=== PATIENT | male | born 1980 | race Hispanic/Latino ===

== ENCOUNTER 2025-05-24 02:39 | Emergency (ER) | payer BC ==
[~2025-05-24] VITALS: Ht 172.7 cm; Wt 66.7 kg
--- NOTE | 2025-05-24 02:45 | ERN ---
ED Note History of Present Illness Stated Complaint: R SIDED LOWER BACK PAIN/NUMBNESS patient comes because he has some right-sided lower back pain. He states that he has back cancer kidney cancers spinal cancer he has that is inoperable patient had attempted to feign or fake a stroke and vagus seizure during his stay here Chief Complaint: Back Pain or Injury Time Seen by MD: 02:42 Allergies: Coded Allergies: No Known Drug Allergies (Unverified Allergy, Unknown, 05/24/25) Review of System Dictation Constitutional: Negative for fever,chills, and weight loss Eyes: Negative for injury, pain,redness, and discharge ENT: Negative for injury,pain or swelling Cardiovascular: Negative for chest pain, palpitations, and edema Respiratory: Negative for shortness of breath, cough, and wheezing, Abdomen/GI: Negative for abdominal pain, nausea, vomiting, diarrhea, and cons tipation Back: Negative for injury and pain : Negative for injury, bleeding and discharge MS/Extremity: Negative for injury and deformity Skin: Negative for rash, and discoloration Neuro: Negative for headache, weakness, numbness, tingling, and seizure Psych: Negative for suicide ideation, homicidal ideation, and hallucinations Initial Vital Sign VS Vital Signs Date Time Temp Pulse Resp B/P (MAP) Pulse Ox O2 Delivery O2 Flow Rate FiO2 05/24/25 02:59 97.9 94 16 124/81 98 Room Air 0 05/24/25 03:15 21 Physical Exam Dictation General: awake, alert, NAD Head/Face: Normocephalic, atraumatic Eyes: PERRL, EOMI, vision at baseline ENT: oral cavity clear, TMs clear, no signs of infection Neck: Trachea midline, supple, no nuchal rigidity Cardiovascular: RRR, normal S1/S2, No MRGs, no JVD Respiratory: CTAB, no respiratory distress, No rales or wheezes Abdomen: Soft, non-tender, non-distended, normal bowel sounds, no guarding or rebound. Skin: Warm, dry, normal turgor, no rash MS/Extremity: Pulses equal, no cyanosis, neurovascular intact, FROM Neuro: COAx4, GCS 15, strength 5/5, CN 2-12 intact, normal cerebellar exam, normal gait, Psych: Normal behavior, mood, and affect normal Results (Laboratory/Radiology) Laboratory/Radiology Laboratory Tests Test 05/24/25 03:22 White Blood Count 5.8 K/uL (4.8-10.8) Red Blood Count 4.39 MIL/uL (4.50-6.20) L Hemoglobin 13.5 g/dL (14.0-18.0) L Hematocrit 37.7 % (42-54) L Mean Corpuscular Volume 85.9 fL (79-99) Mean Corpuscular Hemoglobin 30.8 pg (27.0-33.0) Mean Corpuscular Hemoglobin Concent 35.8 g/dL (32.0-36.0) Red Cell Distribution Width 14.3 % (11.0-15.5) Platelet Count 220 K/uL (130-400) Mean Platelet Volume 10.4 fL (7.5-10.5) Immature Granulocyte % (Auto) 0.9 % (0-1) Neutrophils (%) (Auto) 42.4 % (40.0-77.0) Lymphocytes (%) (Auto) 38.4 % (21.0-51.0) Monocytes (%) (Auto) 11.1 % (3.0-13.0) Eosinophils (%) (Auto) 6.0 % (0.0-8.0) Basophils (%) (Auto) 1.2 % (0.0-5.0) Neutrophils # (Auto) 2.5 K/uL (1.8-7.7) Lymphocytes # (Auto) 2.2 K/uL (1.0-4.8) Monocytes # (Auto) 0.7 K/uL (0.1-1.0) Eosinophils # (Auto) 0.35 K/uL (0.00-0.70) Basophils # (Auto) 0.07 K/uL (0.00-0.20) Absolute Immature Granulocyte (auto 0.05 K/uL (0-1) Nucleated Red Blood Cells 0.0 % (0.0-0.19) Sodium Level 143 mmol/L (136-145) Potassium Level 3.7 mmol/L (3.5-5.1) Chloride Level 110 mmol/L (101-111) Carbon Dioxide Level 21 mmol/L (21-32) Blood Urea Nitrogen 9 mg/dL (7-18) Creatinine 0.7 mg/dL (0.5-1.3) Glomerular Filtration Rate Calc 116 mL/min (>90) Random Glucose 108 mg/dL (70-105) H Total Calcium 8.2 mg/dL (8.5-10.1) L Troponin I High Sensitivity 8 ng/L (4-75) Lipase 26 U/L (16-77) ED Course ED Course Orders Procedure Category Date Status Time Cbc With Differential LAB 05/24/25 Complete 02:43 Troponin I High LAB 05/24/25 Complete Sensitivity 02:43 12 Lead Ekg Tracing- EKG 05/24/25 Logged Technical 02:43 Lactated Ringers PHA 05/24/25 Complete 1000ml (Lactated 03:00 Morphine 4mg Syg PHA 05/24/25 Complete (Morphine 4mg Syg) 03:00 Ondansetron 4mg Inj PHA 05/24/25 Complete (Zofran 4mg Inj) 03:00 Ct Abdomen/Pelvis W/O CT 05/24/25 Resulted Contrast 02:43 Chest 1vw RAD 05/24/25 Resulted 02:43 Lipase LAB 05/24/25 Complete 02:43 Basic Metabolic Panel LAB 05/24/25 Complete 02:43 Haloperidol Inj PHA 05/24/25 In Process (Haldol Inj) 03:00 Current Medications Medications (Trade) Dose Ordered Sig/Toby Route PRN Reason Start Time Stop Time Status Last Admin Dose Admin Haloperidol Lactate (Haldol Inj) 10 mg ONCE PRN IM ANXIETY/AGITATION 05/24/25 03:00 06/23/25 02:59 05/24/25 03:50 Lactated Ringer's 1,000 ml @ 0 mls/hr ONCE ONCE IV 05/24/25 03:00 05/24/25 03:07 DC 05/24/25 03:55 Morphine Sulfate (morPHINE 4MG SYG) 4 mg ONCE ONCE IVP 05/24/25 03:00 05/24/25 03:07 DC 05/24/25 03:53 Ondansetron HCl (zoFRAN 4MG INJ) 4 mg ONCE ONCE IVP 05/24/25 03:00 05/24/25 03:07 DC 05/24/25 03:51 Vital Signs Date Time Temp Pulse Resp B/P (MAP) Pulse Ox O2 Delivery O2 Flow Rate FiO2 05/24/25 03:15 98.6 85 16 120/75 99 Room Air* 0 21 05/24/25 02:59 97.9 94 16 124/81 98 Room Air 0 Medical Decision Making MDM Patient attempted to have fixed seizure and face stroke during his stay initially [facility]. This was aborted with sternal rub. He also said that has entire right side was paralyzed and could not move. But with the nail pressure on both feet and arms. He does have full range of motion strength sensation. He was talking and during this entire time Exhibiting drug-seeking behavior and malingering He does have a mass lesion. He has fallen up with Dr. Rukhsana Peralta has not appointment with Oncology he is coming up His workup does not show any pyelonephritis acute intra-abdominal pathology. Or ACS he does have full range of motion strength sensation of all his limbs I told the patient family he needs to see a chronic pain doctor for to get chronic pain medications he is stable for outpatient management MDM: Differential diagnosis: Rationale: Tests considered and ordered secondary to shared decision making include: Previous outside records reviewed: Old ER visits. Risk of complication and/or morbidity or mortality of patient management: None Medications-Per medication reconciliation Need for hospitalization: Patient does not meet criteria for hospitalization. Need for emergency major/minor surgery: No There are no social concerns with this patient. Prescription drug management Prescriptions will include symptomatic care Patient's prior external medical records from other ER visits were reviewed by me as indicated. Prior testing and results from previous visits were reviewed. Prior tests were taken into account with medical decision making and resource utilization, independent historian/historians were used to obtain complete medical history. I independently interpreted the test that were performed, results were reviewed by me and considered findings on radiology if ordered. Medical management and examination interpretation discussions were had by me with other qualified healthcare professionals as indicated for the patient's care. DX & DISP Disposition: Discharge Departure Impression: Primary Impression: Chronic pain Condition: Stable TERRANCE MCDONALD MD May 24, 2025 02:45
[2025-05-24 03:30] LABS: IMMATURE GRANULOCYTE ABSOLUTE 0.05 K/uL (0-1); NUCLEATED RED BLOOD CELLS 0.0 % (0.0-0.19); PLATELET COUNT (AUTO) 220 K/uL (130-400); RED BLOOD CELL COUNT(AUTO) 4.39 MIL/uL (4.50-6.20); RED CELL DISTRIBUTION WIDTH 14.3 % (11.0-15.5); WHITE BLOOD COUNT (AUTO) 5.8 K/uL (4.8-10.8)
[2025-05-24 03:40] LABS: CREATININE 0.7 mg/dL (0.5-1.3); GLOMERULAR FILTR. RATE CALC 116.0 mL/min (>90); GLUCOSE,RANDOM 108.0 mg/dL (70-105); SODIUM SERUM 143.0 mmol/L (136-145); UREA NITROGEN, BLOOD 9.0 mg/dL (7-18)
[2025-05-24] MEDS: HALOPERIDOL INJ 5 MG/ML VIAL IM PRN (03:50)
[2025-05-24] MEDS: LACTATED RINGERS 1000ML 1,000 ML IV ONE (03:55)
--- NOTE | 2025-05-24 04:03 | HMCIMG ---
EXAM: CT Abdomen and Pelvis without IV contrast CLINICAL HISTORY: Pain. TECHNIQUE: Thin collimated axial CT images of the abdomen and pelvis were obtained with sagittal and coronal reformatted images also submitted. CT scan is done according to ALARA (As Low As Reasonably Achievable). CONTRAST: None. COMPARISON: None. FINDINGS: Unremarkable visualized lung parenchyma. No focal abnormality within the liver, gallbladder, pancreas, or spleen. There is a 1.4 cm exophytic hypodense nodule between the left adrenal gland and the superior pole of the left kidney, which could be an exophytic left adrenal adenoma. Unremarkable right adrenal gland. 0.3 cm focal fat density lesion in the midpole cortex of the left kidney, likely a tiny angiomyolipoma. Unremarkable right kidney. No renal, ureteral, or bladder calculus. No hydronephrosis. There is no obvious bowel wall thickening. Bowel loops are normal in caliber without obstruction or ileus. The appendix is normal. A component of mild constipation is present in the colon. There is no abnormality within the urinary bladder. Borderline size of the prostate. Nonspecific degenerative calcifications within the prostate gland. Small, uncomplicated fat-containing left inguinal hernia. Abdominal and pelvic vessels are grossly unremarkable. No lymphadenopathy. No free fluid. No pneumoperitoneum. There is no acute osseous abnormality. Tiny, uncomplicated fat-containing umbilical hernia. IMPRESSIONS: No acute process in the abdomen or pelvis. There is a 1.4 cm exophytic hypodense nodule between the left adrenal gland and the superior pole of the left kidney, which could be an exophytic left adrenal adenoma. 0.3 cm focal fat density lesion in the midpole cortex of the left kidney, likely a tiny angiomyolipoma. Small, uncomplicated fat-containing left inguinal hernia. /Nicole
--- NOTE | 2025-05-24 04:05 | HMCIMG ---
EXAM: CR Chest, 1 view CLINICAL HISTORY: Pain. COMPARISON: None provided. FINDINGS: The lungs show no infiltrates or other acute findings. No pleural effusion or pneumothorax. The cardiomediastinal silhouette is within normal limits. No acute osseous abnormality. IMPRESSION: No acute cardiopulmonary process is evident. /Bullard
[2025-05-24 04:49] VITALS: BP 123/73; PULSE 80; RESP 15; TEMP 98.5; O2SAT 97
--- NOTE | 2025-05-24 11:06 | EKG ---
[facility] Test Date: 2025-05-24 Test Time: 03:00:13 Pat Name: AKIKO CORNELIUS Department: ED Room: Gender: M Silk Screen [employer]or: [id number] : [id number] Requested By: TERRANCE MCDONALD Order Number: [id number] Reading MD: Simeon Delgado Measurements Intervals [place] Rate: 89 P: 82 CO: 141 QRS: 80 QRSD: 80 T: 52 QT: 321 QTc: 390 Interpretive Statements Sinus rhythm ST elev, probable normal early repol pattern No previous ECG available for comparison Electronically Signed On 05-26-2025 00:01:59 CDT by Simeon Delgado Please click the below link to view image of tracing.
== END 2025-05-24 04:54 | disposition home or self-care (01) ==
LOC: EDH 02:39
DX: G89.29 Other chronic pain (principal); M54.50 Low back pain, unspecified
CPT/HCPCS: 99284; 74176; 96374; 71045; 96361; 96375; 84484; 80048; 83690; 85025; 36415; 93005; 96372; J7120; J1630; J2405; J2270